=== PATIENT | male | born 1980 | race Caucasian/White ===

== ENCOUNTER 2019-12-18 14:34 | Emergency (ER) | payer OTHER ==
[~2019-12-18] VITALS: Ht 188 cm; Wt 142.9 kg
[2019-12-18 14:48] VITALS: BP 147/75
[2019-12-18] MEDS ORDERED: LIDOCAINE 1% HCL (LOCAL ANESTH.) INJ 20ML MDV ONE (16:05)
[2019-12-18] MEDS ORDERED: LIDOCAINE 1% HCL (LOCAL ANESTH.) INJ 20ML MDV ID ONE (16:30)
[2019-12-18] MEDS ORDERED: TETANUS-DIPTH-ACEL PERTUSSIS 0.5ML SYR Tdap IM ONE (17:00)
== END 2019-12-18 18:01 | disposition home or self-care (01) ==
LOC: ER 14:34
DX: S61.412A Laceration without foreign body of left hand, initial encounter (principal); I10 Essential (primary) hypertension; W26.8XXA Contact with other sharp object(s), not elsewhere classified, initial encounter; Y93.89 Activity, other specified; Y92.009 Unspecified place in unspecified non-institutional (private) residence as the place of occurrence of the external cause; Y99.8 Other external cause status
CPT/HCPCS: 12002; 90471; 90715; 99283; J2001

== ENCOUNTER → 2022-10-24 | Outpatient (CLI) | payer OTHER | END | disposition home or self-care (01) | LOC: Rad HDHVI 15:51 | PROVIDERS: ATTEND Internal Medicine Cardiovascular Disease | DX: I51.7 Cardiomegaly (principal); R42 Dizziness and giddiness | CPT/HCPCS: 93306 ==

== ENCOUNTER → 2022-11-21 | Outpatient (CLI) | payer OTHER ==
[~2022-11-21] VITALS: Ht 185.4 cm; Wt 149.7 kg
== END | disposition home or self-care (01) ==
LOC: Rad HDHVI 08:16
PROVIDERS: ATTEND Internal Medicine Cardiovascular Disease
DX: R07.89 Other chest pain (principal); R00.2 Palpitations; E78.00 Pure hypercholesterolemia, unspecified; I10 Essential (primary) hypertension; R42 Dizziness and giddiness; F17.210 Nicotine dependence, cigarettes, uncomplicated; Z82.49 Family history of ischemic heart disease and other diseases of the circulatory system
CPT/HCPCS: 78452; 93017; 96374; A9500

== ENCOUNTER 2025-04-19 14:39 | Outpatient (CLI) | payer OTHER ==
[~2025-04-19] VITALS: Ht 185.4 cm; Wt 129.3 kg
--- NOTE | 2025-04-25 10:46 | DVHSR ---
APPROVED REPORT Exam: Nuclear Stress Test Indication: Screening for CAD Ht: 6 ft 1 in Wt: 285 lbs BSA: 2.50 m2 HR: 68 bpm BP: 128/78 mmHg BMI: 37.59 Rhythm: NSR Medical History Medical History: HTN, Hypercholesterolemia, Diabetes, Smoking, CHF, Dizziness, Palpitations Medications: Ozempic, Lisinopril, Ezetimibe, Allopurinol, Omeprazole, Multivitamin, Fish Oil, Vit C, Glucosamine/Chond, CoQ10, Eliquis, Carvedilol Allergies: No known drug allergies Cardiac Risk Factors: Family Hx of CAD Stress Test Details Stress Test: Exercise stress testing was performed using a Niko protocol. HR Resting HR: 68 bpmMax Heart Rate (APMHR): 175.240777 bpm Max HR Achieved: 148 bpmTarget HR (85% APMHR): 148.973574 bpm % of APMHR: 84.57 Recovery HR: 95 bpm HR response to stress: Normal HR response to stress BP Resting BP: 128/78 mmHg Max BP: 207/49 mmHg Recovery BP: 158/52 mmHg BP response to stress: Exaggerated response ECG Resting ECG: Sinus Rhythm Stress ECG: Sinus Tachycardia Arrhythmia: PVCs, PACs Recovery ECG: Sinus Rhythm Clinical Reason for Termination: Fatigue, Target HR achieved Stress Symptoms: None Exercise duration: 11 min 00 sec Exercise capacity: 13.40 METs Stress ECG Conclusion EF >55% NON ISCHEMIC CLINICAL RESPONSE NON ISCHEMIC ECG RESPONSE NON ISCHEMIC STRESS CARDIOLITE LESS THAN 10% LIKELIHOOD FOR STRESS INDUCED ISCHEMIA NM EXAM: Myocardial Perfusion REST/STRESS Imaging Protocol: Rest Tc-99m/Stress Tc-99m 1 day Resting Data Rest SPECT myocardial perfusion imaging was performed in supine position 30 minutes following the int ravenous injection of 10.39 mCi of Tc-99m Sestamibi. Time of rest injection: 1449 Date: 04/19/2025 Time of rest imagin Date: 04/19/2025 Administration Route: IV Administration Site: Left AC Exercise Stress At peak stress, the patient was injected intravenously with 33.0 mCi of Tc-99m Sestamibi. Time of stress injection: 1554 Date: 04/19/2025 Time of stress imagin Date: 04/19/2025 Administration Route: IV Administration Site: Left AC Heart Rate at time of stress injection: 148 bpm. Patient continued to exercise for 1 minute(s). Gated Stress SPECT was performed 15 minutes after stress injection. The images were gated to evaluate regional wall motion and calculate left ventricular ejection fracti on. Comments Cardiolite injection at 10 minutes, 10 seconds into test. Nuclear Conclusion EF >55% NON ISCHEMIC CLINICAL RESPONSE NON ISCHEMIC ECG RESPONSE NON ISCHEMIC STRESS CARDIOLITE LESS THAN 10% LIKELIHOOD FOR STRESS INDUCED ISCHEMIA
== END 2025-04-19 17:00 | disposition home or self-care (01) ==
LOC: Rad HDHVI 14:39
PROVIDERS: ATTEND Internal Medicine Cardiovascular Disease
DX: I49.1 Atrial premature depolarization (principal); I49.3 Ventricular premature depolarization; I11.0 Hypertensive heart disease with heart failure; I50.33 Acute on chronic diastolic (congestive) heart failure; R00.0 Tachycardia, unspecified; E11.40 Type 2 diabetes mellitus with diabetic neuropathy, unspecified; E78.00 Pure hypercholesterolemia, unspecified; R00.2 Palpitations; R42 Dizziness and giddiness; F17.210 Nicotine dependence, cigarettes, uncomplicated; Z13.6 Encounter for screening for cardiovascular disorders; Z82.49 Family history of ischemic heart disease and other diseases of the circulatory system
CPT/HCPCS: 78452; 93017; A9500; 96374